=== PATIENT | female | born 1940 | race African-American/Black ===

== ENCOUNTER 2017-05-26 09:23 | Observation (INO) | payer OTHER ==
[~2017-05-26] VITALS: Ht 160 cm; Wt 88.5 kg
--- NOTE | ~2017-05-26 | EKG ---
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1940 Requested By: Bryan Cook Order Number: [id number] MD: Luis Angel Cleveland Measurements Intervals [place] Rate: 54 P: 64 [place]: 189 QRS: 37 QRSD: 93 T: 61 QT: 431 QTc: 409 Interpretive Statements Sinus rhythm Low voltage, precordial leads Minimal ST elevation, inferior leads Compared to ECG 08/26/2013 21:11:05 Low QRS voltage now present ST (T wave) deviation now present Sinus bradycardia no longer present Electronically Signed On 05-29-2017 22:00:35 CDT by Luis Angel Cleveland [email or web address] <ELECTRONICALLY SIGNED> By: Luis Angel Cleveland MD 05/29/17 2200 1052 1052 Luis Angel Cleveland MD /EPI
[~2017-05-26 09:23] MED LIST: ALDACTONE25 MG PO; ALLOPURINOL 10100 M1 PO; BACTROBAN CREAM30 G1 NASAL; BAYER CHEWABLE81 MG PO; BYSTOLIC 5 MG5 M1 PO; COZAAR100 MG PO; CYCLOBENZAPRINE10 MG PO; DOXYCYCLINE 10100 M1 PO; GLIPIZIDE XL10 MG PO; MICARDIS 80 MG80 MG PO; MIRALAX255 GM PO; MOTION RELIEF25 MG PO; NORVASC10 MG PO; PERCOCET 10-321 EACH PO; SENOKOT-S1 TA1 PO; SIMVASTATIN40 MG PO; SODIUM BICARBO650 M3 PO; VERAPAMIL E.R240 M1 PO; VERAPAMIL ER240 M1 PO; VICODIN 5-5001 EACH PO
[2017-05-26 09:29] VITALS: BP 168/58
[2017-05-26 10:00] LABS: ABSOLUTE NEUTROPHILS 5.7 thou/uL (1.4-8.2); BASOPHILS 0.7 % (0.0-2.0); EOSINOPHILS 1.6 % (0.0-3.0); HEMATOCRIT 34.7 % (37.0-47.0); HEMOGLOBIN 11.4 gm/dL (12.0-15.0); LYMPHOCYTES 31.9 % (24.0-44.0); MCH 29.6 pg (26.0-34.0); MCHC 32.7 g/dL (28.0-37.0); MCV 90.4 fL (80.0-100.0); MONOCYTES 8.6 % (1.0-8.0); PLATELET COUNT 366 thou/uL (150-400); POLYS 57.2 % (36.0-66.0); RBC 3.84 mil/uL (4.20-5.00); RDW 15.2 % (10.5-14.5)
[2017-05-26 10:04] LABS: ANION GAP 8 mmol/L (7-16); BUN 36 mg/dL (7-18); CALCIUM 9.8 mg/dL (8.5-10.1); CHLORIDE 105 mmol/L (98-107); CO2 22 mmol/L (21-32); CREATININE 1.9 mg/dL (0.6-1.0); GLUCOSE 173 mg/dL (74-106); POTASSIUM 5.6 mmol/L (3.5-5.1); SODIUM 135 mmol/L (136-145)
[2017-05-26 10:07] LABS: MANUAL DIFF NO
[2017-05-26 10:10] LABS: ALBUMIN 3.2 g/dL (3.4-5.0); ALKALINE PHOSPHATASE 93 U/L (46-116); SGOT 24 U/L (15-37); SGPT 19 U/L (30-65); TOTAL BILIRUBIN 0.1 mg/dL (<0.1-1.0)
[2017-05-26 10:30] LABS: DIRECT BILIRUBIN < 0.1 mg/dL (<0.1-0.3)
[2017-05-26 12:25] VITALS: BP 137/67
[2017-05-26 12:42] VITALS: BP 137/67
[2017-05-26] MEDS ORDERED: LIPITOR 20 MG T20 M1 PO (17:12)
[2017-05-26] MEDS ORDERED: LEVEMIR SUBQ (17:14)
[2017-05-26 17:16] VITALS: BP 193/82
[2017-05-26 19:50] VITALS: BP 165/72
[2017-05-27 03:51] VITALS: BP 159/66
[2017-05-27 05:32] LABS: HEMATOCRIT 32.5 % (37.0-47.0); HEMOGLOBIN 10.7 gm/dL (12.0-15.0); MCH 29.6 pg (26.0-34.0); MCV 89.7 fL (80.0-100.0); RBC 3.62 mil/uL (4.20-5.00); RDW 15.2 % (10.5-14.5); WBC 7.9 thou/uL (4.0-11.0)
[2017-05-27 06:20] LABS: CALCIUM 8.8 mg/dL (8.5-10.1); CREATININE 1.5 mg/dL (0.6-1.0); POTASSIUM 5.1 mmol/L (3.5-5.1)
[2017-05-27 07:40] VITALS: BP 176/78
[2017-05-27 15:32] VITALS: BP 176/78
== END 2017-05-27 16:00 | disposition home or self-care (01) ==
LOC: ER 09:23 → 4E 11:43 → EROBS 11:43 → 4E 12:24
PROVIDERS: Emergency Medicine; Internal Medicine
DX: R19.7 Diarrhea, unspecified (principal); R11.2 Nausea with vomiting, unspecified; M79.89 Other specified soft tissue disorders; E11.9 Type 2 diabetes mellitus without complications; I10 Essential (primary) hypertension; E78.5 Hyperlipidemia, unspecified; M10.9 Gout, unspecified; E87.5 Hyperkalemia

== ENCOUNTER 2019-06-13 14:07 | Inpatient (IN) | payer OTHER ==
[~2019-06-13] VITALS: Ht 160 cm; Wt 84.4 kg
[~2019-06-13 14:07] MED LIST changes: +LEVEMIR SUBQ; +LIPITOR 20 MG T20 M1 PO
[2019-06-13 14:08] VITALS: BP 234/93
[2019-06-13 14:55] LABS: ABSOLUTE NEUTROPHILS 5.6 thou/uL (1.4-8.2); BASOPHILS 1.1 % (0.0-2.0); EOSINOPHILS 1.5 % (0.0-3.0); HEMATOCRIT 35.2 % (37.0-47.0); HEMOGLOBIN 11.7 gm/dL (12.0-15.0); LYMPHOCYTES 33.7 % (24.0-44.0); MCHC 33.2 g/dL (28.0-37.0); MCV 87.2 fL (80.0-100.0); MONOCYTES 6.1 % (1.0-8.0); PLATELET COUNT 359 thou/uL (150-400); POLYS 57.6 % (36.0-66.0); RBC 4.04 mil/uL (4.20-5.00); RDW 15.9 % (10.5-14.5); WBC 9.8 thou/uL (4.0-11.0)
[2019-06-13 14:56] LABS: URINE BILIRUBIN NEGATIVE (Negative); URINE BLOOD 1+ (Negative); URINE CLARITY CLEAR; URINE COLOR YELLOW; URINE GLUCOSE-RANDOM* TRACE (Negative); URINE KETONES NEGATIVE (Negative); URINE LEUKOCYTES-REFLEX NEGATIVE (Negative); URINE NITRITE-REFLEX NEGATIVE (Negative); URINE PROTEIN (DIPSTICK) 3+ (Negative); URINE UROBILINOGEN 0.2 E.U./dl (0.2-1.0)
[2019-06-13 15:01] LABS: ANION GAP 13 mmol/L (7-16); BUN 43 mg/dL (7-18); CALCIUM 8.9 mg/dL (8.5-10.1); CHLORIDE 103 mmol/L (98-107); CO2 22 mmol/L (21-32); CREATININE 3.2 mg/dL (0.6-1.0); GLUCOSE 166 mg/dL (74-106); POTASSIUM 3.8 mmol/L (3.5-5.1); SODIUM 138 mmol/L (136-145)
[2019-06-13 15:07] LABS: BACTERIA-REFLEX None Seen /HPF (None Seen); CRYSTALS None Seen /LPF (None Seen); HYALINE CASTS 0-3 Few /LPF (None Seen); SQUAMOUS 0-3 Few /LPF (0-3); URINE RBC 3-10 Few /HPF (0-2); URINE WBC-REFLEX 0-5 Rare /HPF (0-5)
[2019-06-13] MEDS ORDERED: SYNTHROID75 MCG PO (15:08)
[2019-06-13] MEDS ORDERED: LASIX 20 MG TAB20 MG PO (15:09)
[2019-06-13] MEDS ORDERED: DIOVAN320 MG PO (15:10)
[2019-06-13 15:11] LABS: ALBUMIN 2.7 g/dL (3.4-5.0); MAGNESIUM 1.4 mg/dL (1.8-2.4); SGOT 26 U/L (15-37); SGPT 14 U/L (30-65); TOTAL BILIRUBIN 0.2 mg/dL (<0.1-1.0); TOTAL PROTEIN 8.4 g/dL (6.4-8.2); TROPONIN-I <0.06 ng/mL (<0.06)
[2019-06-13 19:04] VITALS: BP 173/73
[2019-06-13 19:35] VITALS: BP 187/78
[2019-06-13 20:00] VITALS: BP 196/90
[2019-06-13 20:50] VITALS: BP 217/102
[2019-06-13 23:25] VITALS: BP 209/77
[2019-06-14 00:40] VITALS: BP 209/70
[2019-06-14 03:55] VITALS: BP 189/80
[2019-06-14 05:36] LABS: HEMATOCRIT 29.5 % (37.0-47.0); HEMOGLOBIN 9.9 gm/dL (12.0-15.0); MCH 28.9 pg (26.0-34.0); MCHC 33.4 g/dL (28.0-37.0); MCV 86.7 fL (80.0-100.0); RBC 3.41 mil/uL (4.20-5.00); RDW 15.7 % (10.5-14.5); WBC 9.6 thou/uL (4.0-11.0)
[2019-06-14 05:48] LABS: CALCIUM 8.4 mg/dL (8.5-10.1); CREATININE 3.3 mg/dL (0.6-1.0); POTASSIUM 3.8 mmol/L (3.5-5.1)
[2019-06-14 06:11] LABS: GLYCOHEMOGLOBIN (HGB A1C) 7.9 % (4.8-5.6)
--- NOTE | 2019-06-14 06:31 | NUR ---
PT ARRIVED FROM ER VIA BED. PLACED IN ROOM 358. VITAL SIGNS NOTED AND PT REMAINS HYPERTENSIVE. SEE CHARTING. HOME MEDS FOR BLOOD PRESSURE RESTARTED. THIS AM SPB DOWN TO 167. PRN HYDRALAZINE GIVEN PER ORDERS ALONG WITH DOSE OF PO LASIX. ADMISSION ASSESSMENTS COMPLETED.
[2019-06-14 07:29] VITALS: BP 134/60
--- NOTE | 2019-06-14 08:35 | EKG ---
[address] [address] ELECTROCARDIOGRAM REPORT Name: ANALIA CAO Room #: 358-P ADM IN M.R.#: [id number] Admission: 06/13/19 Attend Phys: Nataly Burt MD Discharge: Date of : 38 Report #: [id number] THIS REPORT FOR: //name// 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1940 Requested By: Reed Badillo Order Number: [id number] MD: Luis Angel Cleveland Measurements Intervals [place] Rate: 65 P: 49 NC: 134 QRS: 28 QRSD: 93 T: 103 QT: 445 QTc: 463 Interpretive Statements Sinus rhythm Abnormal R-wave progression, early transition Borderline T wave abnormalities Compared to ECG 05/26/2017 10:52:25 T-wave abnormality now present ST (T wave) deviation no longer present Electronically Signed On 06-14-2019 8:35:16 CDT by Luis Angel Cleveland [email or web address] <ELECTRONICALLY SIGNED> By: Luis Angel Cleveland MD 06/14/19 0835 1423 1423 Luis Angel Cleveland MD /EPI
--- NOTE | 2019-06-14 10:48 | NUR ---
ASSESSMENT: CM REVIEWED CHART AND MET WITH PATIENT AT THE BEDSIDE. PT WAS ADMITTED WITH HYPERTENSICE URGENCY. PT LIVES IN A HOUSE WITH HER DAUGHTER AND GRANDDAUGHTER. PT REPORTS NO STEPS TO ENTER BUT ABOUT 14 STEPS WITH A HANDRAIL INSIDE. PT REPORTS SHE NORMALLY AMBULATES INDEPENDENTLY BUT DOES HAVE A CANE AT HOME SHE SELDOMLY USES. PT REPORTS HAVING A SHOWER CHAIR AND IS INDEPENDENT WITH ADLS. PT REPORTS SHE HAS HAD [facility] IN THE PAST BUT HAS NOT BEEN TO SNF. CM DISCUSSED ROLE. PT/OT TO SEE PATIENT SHE MAY BENEFIT FROM HH. CM WILL CONTINUE TO FOLLOW TO ASSIST NEEDED.
[2019-06-14 11:52] VITALS: BP 179/63
[2019-06-14 14:51] LABS: URINE BILIRUBIN NEGATIVE (Negative); URINE BLOOD TRACE (Negative); URINE CLARITY CLEAR; URINE COLOR YELLOW; URINE GLUCOSE-RANDOM* TRACE (Negative); URINE KETONES NEGATIVE (Negative); URINE LEUKOCYTES TRACE (Negative); URINE NITRITE NEGATIVE (Negative); URINE PROTEIN (DIPSTICK) 3+ (Negative); URINE SPECIFIC GRAVITY 1.015 (1.005-1.035); URINE UROBILINOGEN 0.2 E.U./dl (0.2-1.0)
[2019-06-14 14:59] LABS: URINE CREATININE-RANDOM* 186.4 mg/dL
[2019-06-14 15:01] LABS: BACTERIA None Seen /HPF (None Seen); CRYSTALS None Seen /LPF (None Seen); HYALINE CASTS 0-3 Few /LPF (None Seen); SQUAMOUS >10 Many /LPF (0-3); URINE RBC 3-10 Few /HPF (0-2); URINE WBC >25 Many /HPF (0-5)
[2019-06-14 15:05] LABS: URINE PROTEIN-RANDOM* 1045.1 mg/dL (<11.9)
[2019-06-14 16:25] VITALS: BP 151/59
--- NOTE | 2019-06-14 18:43 | NUR ---
ASSUMED PATIENT CARE AT 0700. A/O X4. DENIES PAIN. UP AD TYRON. AMBULATED IN ROOM. SLOWLY TOWARDS POC GOALS.
[2019-06-14 20:00] VITALS: BP 144/52
[2019-06-15] VITALS (7 sets, daily range): BP systolic 139–196; BP diastolic 51–87
--- NOTE | 2019-06-15 05:01 | NUR ---
PATIENT IS ALERT AND ORIENTED. PATIENT IS ON ROOM AIR. PATIENT IS UP AD TYRON. PATIENT IS NSR ON TELE. PATIENT BLOOD PRESSURE WAS ELVATED THIS AM BUT OTHERWISE WAS CONTROLLED THIS SHIFT. PATIENTS LBM WAS THE 28TH. PATIENT HAS UNCONTROLLED DM. PATIENTS IS RESTING COMFORTABLY IN BED. WCM. PATIENT IS PROGRESSING TO GOALS.
[2019-06-15 06:07] LABS: CREATININE 3.9 mg/dL (0.6-1.0); PHOSPHORUS 4.1 mg/dL (2.5-4.9); POTASSIUM 3.8 mmol/L (3.5-5.1)
[2019-06-15 06:32] LABS: TSH 3.983 uIU/mL (0.358-3.740)
--- NOTE | 2019-06-15 16:02 | NUR ---
SW reviewed chart and spoke with nursing and attending physician. Pt is progressing towards goals for discharge. Pt will discharge home when medically stable. No SW interventions identified at this time, but is available to assist should needs arise.
--- NOTE | 2019-06-15 18:36 | NUR ---
Pateint alert and oreinted. pleasant. Creatinine elvated today. Patient's fluids 1/2 normal saline were discontinued this am. Up with OT am. BP 177/65 at 1810 PRN hydralazine administered. Will continue to monitor.
[2019-06-15 19:07] LABS: COMPLEMENT-C3 139 mg/dL (82-167); COMPLEMENT-C4 36 mg/dL (14-44)
--- NOTE | 2019-06-15 19:21 | NUR ---
PATIENT CONT OTN PRGORESS TOWARDS DISCARGE GOALS. SHE WAS UP ON W/C. AMBULATED ABOUT ROUND WITH THERAPY. DID WELL. NO COMPLAINTS OF PAIN AT THIS TIME. WILL CONT WITH PLAN OF CARE.
--- NOTE | 2019-06-15 22:41 | NUR ---
PATIENT IS ALERT AND ORIENTED. PATIENT IS SBA. PATIENT IS ROOM AIR. PATIENTS FLUIDS WERE DC TODAY. PATIENT IS ACHS ACCUCHECKS DUE DM. PATIENTS BP HAS BEEN STABLE. PATIENT IS NSR ON TELE. PATIENT DENEIS PAIN. PATIENT IS RESTING COMFORTABLY. TRANSFER TO [facility].
[2019-06-16 03:33] VITALS: BP 186/78
[2019-06-16 05:31] LABS: HEMATOCRIT 31.1 % (37.0-47.0); HEMOGLOBIN 10.2 gm/dL (12.0-15.0); MCH 28.5 pg (26.0-34.0); MCHC 32.7 g/dL (28.0-37.0); MCV 87.2 fL (80.0-100.0); RBC 3.57 mil/uL (4.20-5.00); RDW 15.7 % (10.5-14.5)
--- NOTE | 2019-06-16 05:52 | NUR ---
PT WAS TRANSFERRED FROM . NOTED WITHG ELEVATED BP UPON ARRIVAL. MEDICATED PER MD ORDER. FAMILY AT BEDSIDE. NO S/S ACUTE DISTRESS NOTED OR REPORTED AT THIS TIME. WILL CONT TO MONITOR FOR ANY CHANGES IN CONDITION.
[2019-06-16 06:00] LABS: ALBUMIN 2.2 g/dL (3.4-5.0); CALCIUM 8.3 mg/dL (8.5-10.1); CREATININE 3.9 mg/dL (0.6-1.0); PHOSPHORUS 3.7 mg/dL (2.5-4.9)
[2019-06-16 06:29] VITALS: BP 142/65
[2019-06-16 08:00] VITALS: BP 162/65
[2019-06-16 15:00] VITALS: BP 190/70
[2019-06-16 17:00] VITALS: BP 150/74
[2019-06-16 19:54] VITALS: BP 143/46
--- NOTE | 2019-06-16 20:35 | NUR ---
1PM-7PM Received awake on bed. Due medications given as prescribed. A+Ox4. On room air. On blood sugar monitoring- taken and recorded accordingly- sliding scale insulin given as prescribed. With SL at L AC- intact. Visited by relatives today. Able to walk to the bathroom with standby assist. Pt with BP 190 at 1500, pt just came back from the bathroom, told her that I will recheck blood pressure again, rechecked BP: 187/80, PRN hydralazine given as prescribed, rechecked BP again: 150/74. Assisted in ADLs.
--- NOTE | 2019-06-17 05:21 | NUR ---
PATIENT ALERT AND ORIENTED X4. MANY FAMILY MEMBERS AT BEDSIDE IN EARLY EVENING, HOWEVER, NO ONE STAYED THE NIGHT. DENIES PAIN. BS MONITORED PER ORDER. COOPERATIVE WITH CARE. SLEPT WELL DURING THE NIGHT. WILL MONITOR.
[2019-06-17 05:43] LABS: ALBUMIN 2.1 g/dL (3.4-5.0); CALCIUM 8.6 mg/dL (8.5-10.1); CREATININE 4.1 mg/dL (0.6-1.0); PHOSPHORUS 4.2 mg/dL (2.5-4.9); POTASSIUM 4.3 mmol/L (3.5-5.1)
[2019-06-17 08:00] VITALS: BP 156/63
[2019-06-17 11:03] VITALS: BP 156/63
[2019-06-17 11:10] LABS: KAPPA FREE LIGHT CHAINS 149.3 mg/L (3.3-19.4); KAPPA/LAMBDA RATIO 1.95 (0.26-1.65); LAMBDA FREE LIGHT CHAINS 76.7 mg/L (5.7-26.3)
--- NOTE | 2019-06-17 11:43 | NUR ---
Assumed pt care this am, vs have been stable. No verbalization of pain have been noted. Pt is able to ambulate in her room with a steady gait. Diet and medications are tolerated well. Informed Dr. Short about elevated creatinine and BUN since DC orders have been given. Pt is to follow up with her own kidney doctor. DC orders given, instructions and reminders given to the pt for follow up. POC followed. IV removed. Pt is leaving with her brother in law.
--- NOTE | 2019-06-19 09:22 | HC ---
[facility] [place] [address] CONSULTATION Name: ANALIA CAO Room #: 464-P [facility] IN M.R.#: [id number] Admission: 06/13/19 Attend Phys: Nataly Burt MD Discharge: 06/17/19 Date of : 38 Report #: [id number] THIS REPORT FOR: //name// CC: Marlene Burt DATE OF SERVICE: 06/14/2019 REASON FOR CONSULTATION: Elevated creatinine. REASON FOR PRESENTATION: Abnormal blood pressure readings. HISTORY OF PRESENT ILLNESS: An 79-year-old with past medical history of right-sided nephrectomy, longstanding diabetes mellitus and hypertension, chronic kidney disease with a baseline creatinine of around 1.7-2. She is followed by Dr. Haddad in the clinic. There had been some recent worsening of her creatinine values in the clinic up to 2.4. There were also some changes of her blood pressure medications due to worsening proteinuria. The patient visited with her primary care physician and was told that her blood pressure was extremely elevated and was advised to come to the Emergency Room. She was found also to have an elevated creatinine above her baseline. She denies noncompliance with medication. She tells me that she is strict with her salt intake. She is currently maintained on valsartan and furosemide along with amlodipine. PAST MEDICAL HISTORY: 1. Diabetes mellitus with diabetic retinopathy. 2. Status post nephrectomy. 3. Hypertension. 4. Left hip prosthesis. 5. Gout. ALLERGIES: No known drug allergies. SOCIAL HISTORY: She denies drug or alcohol abuse. FAMILY HISTORY: Significant for chronic kidney disease. She had a niece who had kidney transplantation. REVIEW OF SYSTEMS: GENERAL: No fever or chills. CARDIOVASCULAR: No chest pain or palpitation. PULMONARY: No cough or hemoptysis. GASTROINTESTINAL: No nausea or vomiting. GENITOURINARY: No frequency, no urgency. MUSCULOSKELETAL: Occasional back pain. [facility] [address] [place] [address] CONSULTATION Name: ANALIA CAO Room #: 464-P [facility] IN [facility].#: [id number] Admission: 06/13/19 Attend Phys: Nataly Burt MD Discharge: 06/17/19 Date of : 38 Report #: [id number] MEDICATIONS: 1. Atorvastatin. 2. Amlodipine. 3. Aspirin. 4. Lasix. 5. Sodium bicarbonate. 6. Valsartan. PHYSICAL EXAMINATION: VITAL SIGNS: Blood pressure 134/60. HEAD AND NECK: No jugular venous distention. CHEST: No crackles. CARDIOVASCULAR: No rub detected. ABDOMEN: Soft, nontender. LOWER EXTREMITIES: No edema. LABORATORY VALUES: Reviewed. Hemoglobin is 9.9. Sodium is 140, BUN is 46, creatinine is 3.3. IMPRESSION AND PLAN: 1. Hypertensive urgency. 2. Chronic kidney disease with a baseline creatinine of around 2. 3. Acute kidney injury. 4. Diabetic retinopathy. 5. Proteinuria. 6. Hematuria. 7. There is definitely a recent worsening of the patient's creatinine that will need to be investigated. 8. I agree with holding the Lasix at this point. 9. Adjust blood pressure medications. 10. Appropriate acute kidney injury workup, including serological marking and ultrasound. 11. Blood sugar control. 12. Avoid nephrotoxins. 13. We will continue to follow along. <ELECTRONICALLY SIGNED> By: Sally Fine MD 06/19/19 0922 1046 [id number] Sally Fine MD /nt
--- NOTE | 2019-06-19 09:22 | HC ---
[facility] [place] [address] CONSULTATION Name: ANALIA CAO Room #: 464-P [facility] IN M.R.#: [id number] Admission: 06/13/19 Attend Phys: Nataly Burt MD Discharge: 06/17/19 Date of : 38 Report #: [id number] THIS REPORT FOR: //name// CC: Marlene Burt DATE OF SERVICE: 06/14/2019 REASON FOR CONSULTATION: Elevated creatinine. 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 Her baseline creatinine is anywhere from 1.7 to 2; however, this had been progressively worsening in the last couple of years. She is known to have diabetic nephropathy. She is followed by Dr. Lynch in my clinic. There had been some recent adjustment of her medications including an increment Dictation Ends Here <ELECTRONICALLY SIGNED> By: Sally Fine MD 06/19/19 0922 1041 [id number] Sally Fine MD /nt
[2019-06-19 14:08] LABS: ANA INTERPRETATION Negative (Negative)
== END 2019-06-17 11:53 | disposition home or self-care (01) | DRG 682 ==
LOC: ER 14:07 → EROBS 17:38 → 3W 17:38 → 4W 06-15 23:04
PROVIDERS: Emergency Medicine; Hospitalist; ADMIT Internal Medicine
DX: N17.9 Acute kidney failure, unspecified (principal); E43 Unspecified severe protein-calorie malnutrition; E87.1 Hypo-osmolality and hyponatremia; I16.0 Hypertensive urgency; I12.9 Hypertensive chronic kidney disease with stage 1 through stage 4 chronic kidney disease, or unspecified chronic kidney disease; E11.319 Type 2 diabetes mellitus with unspecified diabetic retinopathy without macular edema; E03.9 Hypothyroidism, unspecified; D64.9 Anemia, unspecified; E11.22 Type 2 diabetes mellitus with diabetic chronic kidney disease; R80.9 Proteinuria, unspecified; R31.9 Hematuria, unspecified; N18.9 Chronic kidney disease, unspecified; M10.9 Gout, unspecified; Z90.5 Acquired absence of kidney; Z79.82 Long term (current) use of aspirin; Z79.84 Long term (current) use of oral hypoglycemic drugs; Z79.899 Other long term (current) drug therapy; Z84.1 Family history of disorders of kidney and ureter
CPT/HCPCS: 10047; 10080; 10879